=== PATIENT | female | born 1965 | race Caucasian/White ===

== ENCOUNTER 2018-02-11 11:20 | Emergency (ER) | payer OTHER ==
[~2018-02-11] VITALS: Ht 149.9 cm; Wt 86.2 kg
[2018-02-11] MEDS ORDERED: LEXAPRO20 MG PO (11:46)
[2018-02-11] MEDS ORDERED: PRAZOSIN 1 MG CA1 M1 PO (11:46)
[2018-02-11] MEDS ORDERED: WELLBUTRIN 100100 MG (11:46)
[2018-02-11] MEDS ORDERED: IRON325 PO (11:47)
[2018-02-11] MEDS ORDERED: LUNESTA3 MG PO (11:47)
[2018-02-11] MEDS ORDERED: ASPIR 8181 MG PO (11:47)
[2018-02-11] MEDS ORDERED: VITAMIN C100 MG PO (11:47)
[2018-02-11] MEDS ORDERED: FLUPHENAZINE 1 MG PO (11:48)
[2018-02-11] MEDS ORDERED: KEFLEX500 M1 PO (12:03)
[2018-02-11 12:21] VITALS: BP 128/58
== END 2018-02-11 12:22 | disposition home or self-care (01) ==
LOC: M.ERS 11:20
DX: S61.211A Laceration without foreign body of left index finger without damage to nail, initial encounter (principal); W26.9XXA Contact with unspecified sharp object(s), initial encounter; Y93.89 Activity, other specified; Y92.89 Other specified places as the place of occurrence of the external cause; Y99.8 Other external cause status

== ENCOUNTER 2019-07-19 05:58 | Emergency (ER) | payer OTHER ==
[~2019-07-19] VITALS: Ht 149.9 cm; Wt 82.1 kg
[~2019-07-19 05:58] MED LIST: ASPIR 8181 MG PO; FLUPHENAZINE 1 MG PO; IRON325 PO; KEFLEX500 M1 PO; LEXAPRO20 MG PO; LUNESTA3 MG PO; PRAZOSIN 1 MG CA1 M1 PO; VITAMIN C100 MG PO; WELLBUTRIN 100100 MG
[2019-07-19 06:07] VITALS: BP 145/82
[2019-07-19] MEDS ORDERED: PAXIL40 MG PO (06:11)
[2019-07-19] MEDS ORDERED: TRILEPTAL300 MG PO (06:12)
== END 2019-07-19 06:23 | disposition left against medical advice (07) ==
LOC: M.ERS 05:58
DX: M79.602 Pain in left arm (principal); Z53.21 Procedure and treatment not carried out due to patient leaving prior to being seen by health care provider